=== PATIENT | female | born 1970 | race Caucasian/White ===

== ENCOUNTER 2018-10-16 22:19 | Emergency (ER) | payer OTHER ==
[~2018-10-16] VITALS: Ht 170.2 cm; Wt 68.0 kg
[~2018-10-16 22:19] MED LIST: NO MEDICATIONS
[2018-10-16 23:28] VITALS: BP 136/88
[2018-10-16 23:57] LABS: BASOPHILS # (AUTO) 0.1 /CMM (0.0-0.2); BASOPHILS % (AUTO) 0.9 % (0.0-2.0); EOSINOPHILS % (AUTO) 1.5 % (0.0-6.0); HEMATOCRIT 35 % (33-45); HEMOGLOBIN 11.5 g/dL (11.5-14.8); LYMPHOCYTES # (AUTO) 2.7 /CMM (0.8-4.8); LYMPHOCYTES % (AUTO) 21.3 % (20.0-44.0); MEAN CORPUSCULAR HGB CONC 33 g/dl (31.0-36.0); MEAN CORPUSCULAR VOLUME 75 fL (82-100); MONOCYTES # (AUTO) 1.1 /CMM (0.1-1.30); MONOCYTES % (AUTO) 8.4 % (2.0-12.0); NEUTROPHILS # (AUTO) 8.6 /CMM (1.8-8.9); NEUTROPHILS % (AUTO) 67.9 % (43.0-81.0); PLATELET COUNT (AUTO) 346 /CMM (150-450); RED BLOOD CELL COUNT(AUTO) 4.61 MIL/uL (4.0-5.2); WHITE BLOOD COUNT (AUTO) 12.7 K/uL (4.3-11.0)
[2018-10-17 00:01] LABS: BILIRUBIN,URINE NEGATIVE (NEGATIVE); BLOOD, URINE NEGATIVE Ery/uL (NEGATIVE); COLOR,URINE YELLOW (YELLOW); KETONES,URINE NEGATIVE (NEGATIVE); LEUKOCYTE ESTERASE ,URINE 2+ (NEGATIVE); NITRITE, URINE NEGATIVE (NEGATIVE); PROTEIN,URINE NEGATIVE (NEGATIVE); UGLUCOSE NEGATIVE (NEGATIVE); UROBILINOGEN,URINE 0.2 EU/dL (0.2)
[2018-10-17 00:06] LABS: APPEARANCE,URINE HAZY (CLEAR)
[2018-10-17 00:11] LABS: CALCIUM, SERUM 8.6 mg/dL (8.5-10.1); CARBON DIOXIDE 29 mmol/L (21-32); CHLORIDE 95 mmol/L (98-107); CREATININE 0.7 mg/dL (0.6-1.3); GLUCOSE 97 mg/dL (74-106); POTASSIUM 3.6 mmol/L (3.5-5.1); SODIUM SERUM 131 mmol/L (136-145); UREA NITROGEN, BLOOD 12 mg/dL (7-18)
[2018-10-17 00:17] LABS: ALANINE AMINOTRANSFERASE 20 U/L (12-78); ALBUMIN 3.3 g/dL (3.4-5.0); ALKALINE PHOSPHATASE 94 U/L (46-116); ASPARTATE AMINOTRANSFERASE 16 U/L (15-37); BILIRUBIN,TOTAL 0.2 mg/dL (0.2-1.0); SALICYLATE 3.8 mg/dL (2.8-20.0)
[2018-10-17 00:19] LABS: BACTERIA,URINE Few /HPF (None Seen); RBC,URINE 0-2 /HPF (0-2); SQUAMOUS EPITHELIAL CELL,UR Few /HPF (None Seen); WBC,URINE 0-2 /HPF (0-3)
[2018-10-17 00:20] LABS: ACETAMINOPHEN 0 ug/ml (10-30); ALCOHOL, BLOOD < 3 mg/dL (0-0)
--- NOTE | 2018-10-17 00:43 | NUR ---
CALLED PSYCH EVAL, EN ROUTE
--- NOTE | 2018-10-17 02:25 | NUR ---
PT ACCEPTED TO [facility] BY DR DEAN. # FOR REPORT [phone]
--- NOTE | 2018-10-17 02:28 | NUR ---
CALLED ROBERTO CARLOS FOR BLS TRANSPORT TO [facility]. ETA 1 HOUR FROM NOW TRIP #: [id number]
--- NOTE | 2018-10-17 03:10 | NUR ---
REPORT GIVEN TO [facility] FOR CONTINUATION OF CARE.
--- NOTE | 2018-10-17 03:35 | NUR ---
ROBERTO CARLOS AT BEDSIDE FOR TRANSPORT TO [facility].
== END 2018-10-17 04:17 ==
LOC: ER 22:27
DX: R45.851 Suicidal ideations (principal); I10 Essential (primary) hypertension; K21.9 Gastro-esophageal reflux disease without esophagitis; F41.9 Anxiety disorder, unspecified
CPT/HCPCS: 36415; 80048; 80076; 80305; 80307; 80329; 81001; 85025; 87086; 99285; G0480; 81000-TC

== ENCOUNTER 2021-03-30 18:00 | Inpatient (IN) | payer OTHER ==
[~2021-03-30] VITALS: Ht 167.6 cm; Wt 93.9 kg
[2021-03-30] MEDS ORDERED: IV NS 0.9% 1,000 ML BAG IV ONE (18:30)
--- NOTE | 2021-03-30 18:41 | NUR ---
FRIEDA RASMUSSEN From [facility] "CG noticed that gait was unsteady today unknown LKWT " states "Its the devil messing w/me", Hx of Psych " BS-84. On room air, breathing evenly and unlabored. connected to the monitor and pulse ox. Kept comfortable, will continue to monitor accordingly.
[2021-03-30 19:15] LABS: BASOPHILS # (AUTO) 0.1 K/uL (0.0-0.2); BASOPHILS % (AUTO) 0.7 % (0.0-2.0); HEMATOCRIT 37 % (33-45); HEMOGLOBIN 11.9 g/dL (11.5-14.8); LYMPHOCYTES # (AUTO) 0.3 K/uL (0.8-4.8); LYMPHOCYTES % (AUTO) 2.3 % (20.0-44.0); MEAN CORPUSCULAR HGB CONC 32 g/dl (31.0-36.0); MEAN CORPUSCULAR VOLUME 80 fL (82-100); MONOCYTES # (AUTO) 1.1 K/uL (0.1-1.30); NEUTROPHILS # (AUTO) 13.5 K/uL (1.8-8.9); PLATELET COUNT (AUTO) 338 K/uL (150-450); RED BLOOD CELL COUNT(AUTO) 4.57 MIL/uL (4.0-5.2)
[2021-03-30 19:24] LABS: CALCIUM, SERUM 7.4 mg/dL (8.5-10.1); CREATININE 0.9 mg/dL (0.6-1.3); POTASSIUM 3.8 mmol/L (3.5-5.1)
--- NOTE | 2021-03-30 19:26 | NUR ---
URINE COLLECTED SENT FOR LAB
--- NOTE | 2021-03-30 19:26 | NUR ---
URINE COLLECTED SENT FOR LAB
[2021-03-30 19:29] LABS: ALBUMIN 2.9 g/dL (3.4-5.0); BILIRUBIN,DIRECT 0.1 mg/dL (0.0-0.2); BILIRUBIN,TOTAL 0.2 mg/dL (0.2-1.0); TOTAL PROTEIN, SERUM 6.8 g/dL (6.4-8.2)
[2021-03-30 19:39] LABS: BILIRUBIN,URINE Negative (NEGATIVE); COLOR,URINE YELLOW (YELLOW); LEUKOCYTE ESTERASE ,URINE Trace (NEGATIVE); NITRITE, URINE Negative (NEGATIVE); PROTEIN,URINE Negative (NEGATIVE); UGLUCOSE Negative (NEGATIVE); UROBILINOGEN,URINE 0.2 EU/dL (0.2)
[2021-03-30 19:48] LABS: BACTERIA,URINE Few /HPF (None Seen); RBC,URINE 0-2 /HPF (0-2); SQUAMOUS EPITHELIAL CELL,UR Few /HPF (None Seen); WBC,URINE 0-2 /HPF (0-3)
[2021-03-30 20:10] LABS: ACETAMINOPHEN < 10 ug/ml (10-30); ALCOHOL, BLOOD < 3 mg/dL (0-0)
--- NOTE | 2021-03-30 20:20 | NUR ---
COVID SWAB DONE SENT FOR LAB
[2021-03-30] MEDS ORDERED: ASPIRIN 81 MG TAB.CHEW PO ONE (20:30)
[2021-03-30] MEDS ORDERED: ASPIRIN 81 MG TAB.CHEW ONE (20:51)
[2021-03-30] MEDS ORDERED: ONDANSETRON HCL/PF 4 MG/2 ML VIAL IVP PRN (23:00)
[2021-03-30] MEDS ORDERED: MAG HYDROX/AL HYDROX/SIMETH 30 ML UDC PO PRN (23:00)
[2021-03-30] MEDS ORDERED: NITROGLYCERIN 0.4 MG/TAB BOTTLE SL PRN (23:00)
[2021-03-30] MEDS ORDERED: MORPHINE SULFATE INJ 2 MG/ML DISP.SYRIN IV PRN (23:00)
[2021-03-30] MEDS ORDERED: Z GUARD REMEDY 2 OZ OINT TP PRN (23:00)
[2021-03-30] MEDS ORDERED: HYDROCODONE/APAP 5/325MG TABLET PO PRN (23:00)
[2021-03-30] MEDS ORDERED: MAGNESIUM HYDROXIDE 30 ML UDC PO PRN (23:00)
--- NOTE | 2021-03-31 00:06 | NUR ---
TELE 110
--- NOTE | 2021-03-31 00:30 | NUR ---
COVID SWAB DONE AND SENT TO LAB
--- NOTE | 2021-03-31 00:48 | NUR ---
report given to kyleigh alcantara
[2021-03-31 01:15] VITALS: BP 102/66
--- NOTE | 2021-03-31 01:15 | NUR ---
STUDENT CAREER DEVELOPMENT SPECIALIST NOTES Admitted a 50 y/0 awake a/o x3 [facility] with dx of Nstemi .v/s stable afebrile Pts on r/a sr on the monitor sating 98% with left hand G# 20 intact and patent .all needs attended to , call light within reach ,ALLERGY TO CATS AND DOG HAIR body check done noted with left knee scab,other villegas skin intact. will continue to monitor pts.
--- NOTE | 2021-03-31 01:22 | NUR ---
transferred pt to tele 110 in stable condition with belongings on pt, transferred per acls protocol
[2021-03-31 04:00] VITALS: BP 91/70
[2021-03-31 06:25] LABS: BASOPHILS # (AUTO) 0.1 K/uL (0.0-0.2); BASOPHILS % (AUTO) 0.4 % (0.0-2.0); EOSINOPHILS % (AUTO) 0.1 % (0.0-6.0); HEMATOCRIT 38 % (33-45); HEMOGLOBIN 12.3 g/dL (11.5-14.8); LYMPHOCYTES # (AUTO) 2.2 K/uL (0.8-4.8); LYMPHOCYTES % (AUTO) 16.6 % (20.0-44.0); MEAN CORPUSCULAR HGB CONC 32 g/dl (31.0-36.0); MEAN CORPUSCULAR VOLUME 80 fL (82-100); MONOCYTES # (AUTO) 1.7 K/uL (0.1-1.30); MONOCYTES % (AUTO) 12.3 % (2.0-12.0); NEUTROPHILS # (AUTO) 9.5 K/uL (1.8-8.9); NEUTROPHILS % (AUTO) 70.6 % (43.0-81.0); PLATELET COUNT (AUTO) 354 K/uL (150-450); RED BLOOD CELL COUNT(AUTO) 4.75 MIL/uL (4.0-5.2); WHITE BLOOD COUNT (AUTO) 13.5 K/uL (4.3-11.0)
[2021-03-31 07:19] LABS: CALCIUM, SERUM 8.4 mg/dL (8.5-10.1); CREATININE 0.7 mg/dL (0.6-1.3); MAGNESIUM 2.3 mg/dL (1.8-2.4); PHOSPHORUS 4.2 mg/dL (2.5-4.9); POTASSIUM 3.9 mmol/L (3.5-5.1)
[2021-03-31 07:39] LABS: THYROID STIMULATING HORMONE 1.519 uIU/mL (0.358-3.74)
[2021-03-31 08:00] VITALS: BP 116/55
[2021-03-31] MEDS: PANTOPRAZOLE 40 MG TABLET.DR PO SCH (08:03)
[2021-03-31] MEDS: ENOXAPARIN SODIUM 40 MG/0.4 ML DISP.SYRIN SQ SCH (08:03)
[2021-03-31] MEDS: ASPIRIN 81 MG TAB.CHEW PO SCH (08:04)
[2021-03-31] MEDS ORDERED: OMEP20CA15 PO (09:07)
[2021-03-31] MEDS ORDERED: VALB80CA PO (09:07)
[2021-03-31] MEDS ORDERED: DIVA500T54 PO (09:07)
[2021-03-31] MEDS ORDERED: ERGO500093 PO (09:07)
[2021-03-31] MEDS ORDERED: BENZ1TAB7 PO (09:07)
[2021-03-31] MEDS ORDERED: TOLT4CAP PO (09:07)
[2021-03-31] MEDS ORDERED: GABA-532 PO (09:07)
[2021-03-31] MEDS ORDERED: HALO5TAB8 PO (09:07)
[2021-03-31] MEDS ORDERED: ATOR10TA PO (09:07)
[2021-03-31] MEDS: HALOPERIDOL 5 MG TABLET PO SCH ×2 (11:48→20:35)
[2021-03-31] MEDS: BENZTROPINE MESYLATE (1 MG) 1 MG TABLET PO SCH ×2 (11:48→20:35)
[2021-03-31 12:00] VITALS: BP 120/68
--- NOTE | 2021-03-31 15:15 | NUR ---
RN NOTES CONSENT OBTAIN FOR CT ANGIOGRAM OF THE HEART WITH 3D IMAGES. Toribio FERRO 18 G IV ACCESS INSERTED BY BOTTOM SAW OPERATOR. AWAITING MAINTENANCE MAN. Addendum: 03/31/21 at 1712 by RYDER ABREU RN CT ANGRIOGRAM CANCELED PER PT TACHYCARDIC.
[2021-03-31] MEDS: ACETAMINOPHEN 325 MG TABLET PO PRN (15:38)
[2021-03-31] MEDS ORDERED: IOHEXOL-350 100 ML VIAL IV ONE (15:51)
[2021-03-31] MEDS ORDERED: IV NS 0.9% 250 ML IV ONE (15:52)
[2021-03-31 16:00] VITALS: BP 141/86
[2021-03-31] MEDS ORDERED: METOPROLOL TARTRATE INJ 5 MG/5 ML AMPUL IVP PRN (16:00)
[2021-03-31] MEDS ORDERED: NITROGLYCERIN 0.4 MG/TAB BOTTLE SL PRN (16:00)
--- NOTE | 2021-03-31 16:01 | NUR ---
telephone order clerk note called to dr delacruz notified that hr st 113-126 ,patient is going to have ct angio ok , ordered to to cancel procedure for today ,rt ac hl omar 20 inserted with good blood return
--- NOTE | 2021-03-31 18:44 | NUR ---
RN NOTES PT RESTING WITH BED FLAT IN LOWEST LOCKED POSITION. NO S/SX OF PAIN OR RESPIRATORY DISTRESS. PT HAS A R AC 18 G SALINE LOCK AND L FA 20 G PERIPHERAL IV. ALL NEEDS ATTENDED AT THIS TIME.
--- NOTE | 2021-03-31 19:38 | NUR ---
RN NOTE PT RECEIVED IN BED. PT IS ON 2L OF O2 SHOWING NO S/S OF RESP DISTRESS. PT IS A/OX3. PT ON TELE MONITOR SHOWING NSR-ST. PT IS ABLE TO AMBULATE WITH ASSISTANCE. LEFT KNEE SCAB NOTED. IV ACCESS NOTED, LINES FLUSHED, PATENT, AND INTACT WITH NO INFILTRATION. ALL SAFETY MEASURES IMPLEMENTED. CALL LIGHT WITHIN REACH. BED ALARM ON. BED LOCKED AND IN LOWEST POSITION. WILL CONTINUE TO MONITOR AND ASSESS FOR ANY CHANGES.
[2021-03-31 20:00] VITALS: BP 111/69
[2021-03-31] MEDS ORDERED: LORAZEPAM INJ 2 MG/ML VIAL IV PRN (22:00)
[2021-03-31] MEDS: TEMAZEPAM 15 MG CAPSULE PO PRN (23:52)
[2021-04-01] VITALS: BP 109/67
--- NOTE | 2021-04-01 00:23 | NUR ---
RN NOTE PT HEART RATE GOES UP TO MID 140s. DR. BESS MADE AWARE. NO NEW ORDERS AT THIS TIME. WILL CONTINUE TO MONITOR.
--- NOTE | 2021-04-01 01:36 | NUR ---
RN NOTE PT HEART RATE NOW 110-115. WILL CONTINUE TO MONITOR AND ASSESS FOR ANY CHANGES.
[2021-04-01 04:00] VITALS: BP 104/58
[2021-04-01 06:30] LABS: BASOPHILS % (AUTO) 0.1 % (0.0-2.0); HEMATOCRIT 37 % (33-45); HEMOGLOBIN 11.9 g/dL (11.5-14.8); LYMPHOCYTES # (AUTO) 1.4 K/uL (0.8-4.8); LYMPHOCYTES % (AUTO) 6.2 % (20.0-44.0); MEAN CORPUSCULAR HGB CONC 33 g/dl (31.0-36.0); MEAN CORPUSCULAR VOLUME 80 fL (82-100); MONOCYTES # (AUTO) 2.3 K/uL (0.1-1.30); MONOCYTES % (AUTO) 10.4 % (2.0-12.0); NEUTROPHILS # (AUTO) 18.2 K/uL (1.8-8.9); NEUTROPHILS % (AUTO) 83.3 % (43.0-81.0); PLATELET COUNT (AUTO) 302 K/uL (150-450); RED BLOOD CELL COUNT(AUTO) 4.58 MIL/uL (4.0-5.2); WHITE BLOOD COUNT (AUTO) 21.8 K/uL (4.3-11.0)
[2021-04-01 06:35] LABS: CALCIUM, SERUM 8.7 mg/dL (8.5-10.1); CREATININE 0.8 mg/dL (0.6-1.3); MAGNESIUM 2.1 mg/dL (1.8-2.4); PHOSPHORUS 3.9 mg/dL (2.5-4.9); POTASSIUM 3.2 mmol/L (3.5-5.1)
--- NOTE | 2021-04-01 06:36 | NUR ---
RN NOTE NO CHANGES IN PT CONDITION DURING SHIFT. PT IS ON 2L OF O2 SHOWING NO S/S OF RESP DISTRESS. PT IS A/OX3. PT ON TELE MONITOR SHOWING NSR-ST. PT HR NOW IN MID 80s-110s. IV LINES FLUSHED, PATENT, AND INTACT WITH NO INFILTRATION. ALL DUE MEDS GIVEN ORDERED. PT KEPT CLEAN AND COMFORTABLE. SAFETY MEASURES IMPLEMENTED. CALL LIGHT WITHIN REACH. BED ALARM ON. BED LOCKED AND IN LOWEST POSITION. WILL ENDORSE TO MORNING SHIFT RN FOR JOYCE.
--- NOTE | 2021-04-01 07:30 | NUR ---
MS RN NOTE PT RECEIVED IN BED. AO X 3, PT IS ON 2L O2 NASAL CANULA, NO RESP DISTRESS. ABLE TO EXPRESS NEEDS, IV ACCESS RT HAND G 22 FLUSHES WELL SITE CLEAR. DENIES PAIN AT THIS TIME. AMBULATE WITH ASSISTANCE. LEFT KNEE SCAB NOTED. CARDIAC DIET. ALL SAFETY MEASURES IMPLEMENTED. CALL LIGHT WITHIN REACH. BED ALARM ON. BED LOCKED AND IN LOWEST POSITION. WILL CONTINUE TO MONITOR AND ASSESS FOR ANY CHANGES. PATIENT FOR CTCA PER DR. SAINI TODAY.
[2021-04-01 08:00] VITALS: BP 106/59
[2021-04-01] MEDS: PANTOPRAZOLE 40 MG TABLET.DR PO SCH (08:40)
[2021-04-01] MEDS: BENZTROPINE MESYLATE (1 MG) 1 MG TABLET PO SCH ×2 (08:40→20:13)
[2021-04-01] MEDS: HALOPERIDOL 5 MG TABLET PO SCH ×2 (08:40→20:13)
[2021-04-01] MEDS: ASPIRIN 81 MG TAB.CHEW PO SCH (08:40)
[2021-04-01] MEDS: ENOXAPARIN SODIUM 40 MG/0.4 ML DISP.SYRIN SQ SCH (08:42)
--- NOTE | 2021-04-01 09:30 | NUR ---
RN NOTES DUE MEDS GIVEN NEW IV ACCESS TO LEFT AC G 18. GOOD BLOOD RETURN.
[2021-04-01] MEDS: METOPROLOL TARTRATE 25 MG TABLET PO SCH ×2 (09:48→20:14)
[2021-04-01] MEDS: POTASSIUM CHLORIDE 20 MEQ TAB.PRT.SR PO SCH ×2 (09:49→10:58)
--- NOTE | 2021-04-01 10:15 | NUR ---
RN NOTES DR. SAINI CANCELLED CTCA.
[2021-04-01 12:00] VITALS: BP 98/48
[2021-04-01 16:00] VITALS: BP 103/56
[2021-04-01 18:47] LABS: BILIRUBIN,URINE NEGATIVE (NEGATIVE); COLOR,URINE YELLOW (YELLOW); LEUKOCYTE ESTERASE ,URINE MODERATE (NEGATIVE); NITRITE, URINE NEGATIVE (NEGATIVE); PROTEIN,URINE TRACE mg/dl (NEGATIVE); UGLUCOSE NEGATIVE (NEGATIVE); UROBILINOGEN,URINE 0.2 EU/dL (0.2)
[2021-04-01 18:56] LABS: WBC,URINE 81-100 /HPF (0-3)
[2021-04-01 18:57] LABS: BACTERIA,URINE 4+ /HPF (None Seen); SQUAMOUS EPITHELIAL CELL,UR 0-2 /HPF (None Seen)
[2021-04-01 20:00] VITALS: BP 98/49
[2021-04-01] MEDS: ACETAMINOPHEN 325 MG TABLET PO PRN (20:13)
--- NOTE | 2021-04-01 20:20 | NUR ---
RN NOTE- NON ADMIN LOPRESSOR HOLD LOPRESSOR FOR BP OF 98/49, HR 63.
[2021-04-02 04:00] VITALS: BP 125/66
--- NOTE | 2021-04-02 07:02 | NUR ---
RN CLOSING NOTES NO SIGNIFICANT CHANGE IN PT CONDITION THROUGHOUT SHIFT. PT REMAINS IN BED. ON 3L OF O2, BREATHING EVEN AND UNLABORED. NO DISTRESS NOTED. PT DENIES SOB. ALL NEEDS ATTENDED. PT DENIES PAIN. STILL REMAINS WITH IVF RUNNING ORDERED. SAFETY MEASURES IN PLACE. WILL ENDORSE TO DAY SHIFT NURSE FOR CONTINUATION OF CARE. WILL CONT TO MONITOR UNTIL END OF SHIFT. Addendum: 04/02/21 at 0703 by LATOYA DOZIER RN NO IVF RUNNING*
[2021-04-02 07:07] LABS: BASOPHILS % (AUTO) 0.5 % (0.0-2.0); HEMATOCRIT 35 % (33-45); HEMOGLOBIN 11.4 g/dL (11.5-14.8); LYMPHOCYTES % (AUTO) 9.4 % (20.0-44.0); MEAN CORPUSCULAR HGB CONC 33 g/dl (31.0-36.0); MEAN CORPUSCULAR VOLUME 80 fL (82-100); MONOCYTES % (AUTO) 11.4 % (2.0-12.0); NEUTROPHILS % (AUTO) 78.7 % (43.0-81.0); PLATELET COUNT (AUTO) 271 K/uL (150-450); RED BLOOD CELL COUNT(AUTO) 4.38 MIL/uL (4.0-5.2); WHITE BLOOD COUNT (AUTO) 13.9 K/uL (4.3-11.0)
[2021-04-02 07:08] LABS: BASOPHILS # (AUTO) 0.1 K/uL (0.0-0.2); LYMPHOCYTES # (AUTO) 1.3 K/uL (0.8-4.8); MONOCYTES # (AUTO) 1.6 K/uL (0.1-1.30); NEUTROPHILS # (AUTO) 10.9 K/uL (1.8-8.9)
[2021-04-02 07:13] LABS: CALCIUM, SERUM 8.3 mg/dL (8.5-10.1); CREATININE 0.9 mg/dL (0.6-1.3); MAGNESIUM 1.9 mg/dL (1.8-2.4)
--- NOTE | 2021-04-02 07:20 | NUR ---
MS RN OPENING NOTE PT RECEIVED IN BED. A/O X 2. PT IS ON 3L O2 NASAL CANULA SATURATING AT 96%, WITH NO RESP DISTRESS. ABLE TO EXPRESS NEEDS, IV ACCESS RT HAND G 20, PATENT AND INTACT. PATIENT DENIES PAIN AT THIS TIME. AMBULATE WITH ASSISTANCE. ALL SAFETY MEASURES ENSURED WITH BED AT LOWEST AND LOCKED POSITION. SIDERAILS RAISED X 2. CALL LIGHT AND TABLE WITHIN REACH AT ALL TIMES. WILL CONTINUE TO MONITOR PATIENT.
[2021-04-02] MEDS: ENOXAPARIN SODIUM 40 MG/0.4 ML DISP.SYRIN SQ SCH (08:32)
[2021-04-02] MEDS: BENZTROPINE MESYLATE (1 MG) 1 MG TABLET PO SCH ×2 (08:35→20:31)
[2021-04-02] MEDS: ASPIRIN 81 MG TAB.CHEW PO SCH (08:36)
[2021-04-02] MEDS: METOPROLOL TARTRATE 25 MG TABLET PO SCH ×2 (08:36→20:31)
[2021-04-02] MEDS: PANTOPRAZOLE 40 MG TABLET.DR PO SCH (08:36)
[2021-04-02] MEDS: HALOPERIDOL 5 MG TABLET PO SCH ×2 (08:37→20:31)
[2021-04-02] MEDS: ACETAMINOPHEN 325 MG TABLET PO PRN ×2 (09:25→18:51)
[2021-04-02] MEDS ORDERED: NITROGLYCERIN 0.4 MG/TAB BOTTLE ONE (11:31)
[2021-04-02] MEDS ORDERED: CT SWABBABLE VALVE TRANS SET 1 EA INFUS.SET MC ONE (11:31)
[2021-04-02] MEDS ORDERED: IV NS 0.9% 250 ML IV ONE (11:31)
[2021-04-02] MEDS ORDERED: METOPROLOL TARTRATE INJ 5 MG/5 ML AMPUL ONE (11:31)
[2021-04-02] MEDS ORDERED: IOHEXOL-350 100 ML VIAL IV ONE ×2 (11:31→12:05)
[2021-04-02 12:00] VITALS: BP 118/56
[2021-04-02] MEDS ORDERED: NITROGLYCERIN 0.4 MG/TAB BOTTLE SL ONE (12:00)
[2021-04-02] MEDS ORDERED: METOPROLOL TARTRATE INJ 5 MG/5 ML AMPUL IVP PRN (12:00)
--- NOTE | 2021-04-02 12:15 | NUR ---
pt in here for CTA heart; consented to procedure; recieved netoprolol 5 mg IVPx1 and NTG 0.4 mg SL, pts IV on R ac infiltrated at the start of contrast injection; another peripheral IV g 18 on L ac started by Israel Harrington, CTA completed; BRIGITTE Reid given report; informed also on infiltration on R arm IV and recommended warm packs on previous IV site
[2021-04-02] MEDS: CEFTRIAXONE 2 G in IV D5W 100 ML IV SCH (12:32)
--- NOTE | 2021-04-02 19:25 | NUR ---
MS RN CLOSING NOTE PATIENT IN BED. A/O X 2. PT IS ON 3L O2 NASAL CANULA SATURATING AT 96%, WITH NO RESP DISTRESS. ABLE TO EXPRESS NEEDS, IV ACCESS RT HAND G 20, PATENT AND INTACT. PATIENT DENIES PAIN AT THIS TIME. AMBULATE WITH ASSISTANCE. ALL SAFETY MEASURES ENSURED WITH BED AT LOWEST AND LOCKED POSITION. SIDERAILS RAISED X 2. CALL LIGHT AND TABLE WITHIN REACH AT ALL TIMES. WILL ENDORSE PATIENT FOR CONTINUITY OF CARE.
--- NOTE | 2021-04-02 19:30 | NUR ---
RN NOTE RECEIVED PATIENT IN BED, AXO2, ABLE TO MAKE NEEDS KNOWN. BREATHING EVEN AND UNLABORED. PATIENT CURRENTLY ON 3L NASAL CANNULA. TOLERATING WELL. NO SOB NOTED. SKIN IS WARM AND DRY TO TOUCH. ABDOMEN SOFT/NONTENDER. NOTED WITH IV ACCESS ON RIGHT HAND 20G. PATENT. BED IN LOCKED POSITION, CALL LIGHT WITHIN REACH.
[2021-04-02 20:00] VITALS: BP 97/52
[2021-04-03] MEDS: ACETAMINOPHEN 325 MG TABLET PO PRN (00:45)
--- NOTE | 2021-04-03 00:46 | NUR ---
RN NOTE PATIENT NOTED SHIVERING. PATIENT TEMPERATURE 100.3. ADMINISTERED TYLENOL 650 MG PER ORDER. WILL CONTINUE TO MONITOR.
[2021-04-03] MEDS: TEMAZEPAM 15 MG CAPSULE PO PRN (01:13)
--- NOTE | 2021-04-03 01:17 | NUR ---
RN NOTE PATIENT VERBALIZES INABILITY TO SLEEP AT THIS TIME. ADMINISTERED TEMAZEPAM 15 MG PRN FOR INSOMNIA. ASSISTED WITH REPOSITIONING, OFFERED EXTRA BLANKETS, DIMMED LIGHTS. WILL CONTINUE TO MONITOR. CALL LIGHT WITHIN REACH.
[2021-04-03 04:00] VITALS: BP 104/66
--- NOTE | 2021-04-03 07:25 | NUR ---
RN NOTE NO SIGNIFICANT CHANGES DURING SHIFT. PATIENT CURRENTLY SLEEPING, EASILY AROUSABLE. SKIN WARM AND DRY. AFEBRILE AT THIS TIME. KEPT CLEAN AND DRY AT ALL TIMES. BED IN LOCKED POSITION. CALL LIGHT WITHIN REACH. ENDORSED TO NEXT SHIFT ACCORDINGLY.
--- NOTE | 2021-04-03 07:30 | NUR ---
MS RN OPENING NOTE RECEIVED PT IN BED WITH EYES CLOSED, EASILY AROUSED. A/O X2. PT IS ON 3LPM O2 VIA NC SATURATING AT 95%. NO SOB OR S/S OF RESPIRATORY DISTRESS NOTED. PT HAS NO SIGNS OF FACIAL GRIMACING AT THIS TIME. IV ACCESS IN LAC #18, INTACT AND PATENT. SAFETY PRECAUTIONS MAINTAINED. BED IN LOWEST LOCKED POSITION, HOB ELEVATED, SIDE RAILS UP X3, BED ALARM ON. CALL LIGHT AND TABLE WITHIN REACH. WILL CONTINUE WITH PLAN OF CARE.
[2021-04-03] MEDS: PANTOPRAZOLE 40 MG TABLET.DR PO SCH (07:36)
[2021-04-03] MEDS: ASPIRIN 81 MG TAB.CHEW PO SCH (08:30)
[2021-04-03] MEDS: HALOPERIDOL 5 MG TABLET PO SCH ×2 (08:31→21:23)
[2021-04-03] MEDS: METOPROLOL TARTRATE 25 MG TABLET PO SCH (08:32)
[2021-04-03] MEDS: BENZTROPINE MESYLATE (1 MG) 1 MG TABLET PO SCH ×2 (08:36→21:23)
[2021-04-03] MEDS: ENOXAPARIN SODIUM 40 MG/0.4 ML DISP.SYRIN SQ SCH (08:42)
[2021-04-03] MEDS: ATORVASTATIN 40 MG TABLET PO SCH (09:13)
[2021-04-03] MEDS: CEFTRIAXONE 2 G in IV D5W 100 ML IV SCH (11:47)
[2021-04-03 12:00] VITALS: BP 125/64
[2021-04-03 16:17] LABS: CALCIUM, SERUM 8.3 mg/dL (8.5-10.1); CREATININE 0.8 mg/dL (0.6-1.3); MAGNESIUM 2.1 mg/dL (1.8-2.4); PHOSPHORUS 4.1 mg/dL (2.5-4.9); POTASSIUM 3.4 mmol/L (3.5-5.1)
[2021-04-03 16:19] LABS: HEMOGLOBIN 11.7 g/dL (11.5-14.8); RED BLOOD CELL COUNT(AUTO) 4.47 MIL/uL (4.0-5.2); WHITE BLOOD COUNT (AUTO) 10.3 K/uL (4.3-11.0)
[2021-04-03 16:20] LABS: BASOPHILS % (AUTO) 0.3 % (0.0-2.0); EOSINOPHILS % (AUTO) 0.1 % (0.0-6.0); HEMATOCRIT 35 % (33-45); LYMPHOCYTES # (AUTO) 1.6 K/uL (0.8-4.8); LYMPHOCYTES % (AUTO) 15.7 % (20.0-44.0); MEAN CORPUSCULAR HGB CONC 33 g/dl (31.0-36.0); MEAN CORPUSCULAR VOLUME 79 fL (82-100); MONOCYTES # (AUTO) 1.7 K/uL (0.1-1.30); MONOCYTES % (AUTO) 16.9 % (2.0-12.0); NEUTROPHILS # (AUTO) 6.9 K/uL (1.8-8.9); PLATELET COUNT (AUTO) 287 K/uL (150-450)
[2021-04-03 16:21] LABS: LYMPHOCYTES % (MANUAL) 15 % (16-48); NEUTROPHILS % (MANUAL) 70 (42-76)
[2021-04-03 16:22] LABS: MONOCYTES % (MANUAL) 15 % (0-11.0)
--- NOTE | 2021-04-03 18:17 | NUR ---
MS RN CLOSING NOTE PT IS AWAKE IN BED. A/O X2. PT IS ON 3LPM O2 VIA NC SATURATING AT 96%. NO SOB OR S/S OF RESPIRATORY DISTRESS NOTED. PT HAS NO C/O PAIN OR DISCOMFORT AT THIS TIME. IV ACCESS IN LAC #18, INTACT AND PATENT. ALL NEEDS HAVE BEEN MET. SAFETY PRECAUTIONS MAINTAINED AT ALL TIMES. BED IN LOWEST LOCKED POSITION, HOB ELEVATED, SIDE RAILS UP X3, BED ALARM ON. CALL LIGHT AND TABLE WITHIN REACH. WILL ENDORSE TO ONCOMING NURSE FOR JOYCE.
--- NOTE | 2021-04-03 19:30 | NUR ---
MS RN NOTE RECEIVED PATIENT IN BED, AWAKE, ALERT, AND RESPONSIVE. PATIENT AOX2. ABLE TO MAKE NEEDS KNOWN. BREATHING EVEN AND UNLABORED. PATIENT CURRENTLY ON ROOM AIR AT THIS TIME. NO SOB NOTED. NO COUGH/CONGESTION. SKIN WARM AND DRY TO TOUCH. NOTED WITH IV PULLED OUT. NO BLEEDING AT SITE. IV INTACT. REINSERTED PERIPHERAL IV 24G ON BACK OF RIGHT HAND WITH GOOD BLOOD RETURN. PATIENT AMBULATORY WITH ASSIST TO THE RESTROOM. CALL LIGHT WITHIN REACH.
[2021-04-03 20:00] VITALS: BP 112/76
[2021-04-03] MEDS: METOPROLOL TARTRATE 50 MG TABLET PO SCH (21:23)
[2021-04-04] MEDS: ACETAMINOPHEN 325 MG TABLET PO PRN (03:57)
--- NOTE | 2021-04-04 03:58 | NUR ---
RN NOTE PATIENT NOTED WITH TEMPERATURE OF 100.1 VIA ORAL. RESPIRATION 20. NON-LABORED. SKIN WARM AND DRY TO TOUCH. NO SHIVERING. NO COUGH NOTED. DENIES PAIN AT THIS TIME. PROVIDED PATIENT WITH DAMP TOWEL. WILL CONTINUE TO MONITOR.
[2021-04-04 04:00] VITALS: BP 125/62
[2021-04-04 07:10] LABS: BASOPHILS % (AUTO) 0.3 % (0.0-2.0); EOSINOPHILS % (AUTO) 0.4 % (0.0-6.0); HEMATOCRIT 37 % (33-45); HEMOGLOBIN 12.1 g/dL (11.5-14.8); LYMPHOCYTES # (AUTO) 2.1 K/uL (0.8-4.8); LYMPHOCYTES % (AUTO) 24.7 % (20.0-44.0); MEAN CORPUSCULAR HGB CONC 33 g/dl (31.0-36.0); MEAN CORPUSCULAR VOLUME 79 fL (82-100); MONOCYTES # (AUTO) 1.4 K/uL (0.1-1.30); MONOCYTES % (AUTO) 17.2 % (2.0-12.0); NEUTROPHILS # (AUTO) 4.8 K/uL (1.8-8.9); NEUTROPHILS % (AUTO) 57.4 % (43.0-81.0); PLATELET COUNT (AUTO) 310 K/uL (150-450); RED BLOOD CELL COUNT(AUTO) 4.64 MIL/uL (4.0-5.2); WHITE BLOOD COUNT (AUTO) 8.4 K/uL (4.3-11.0)
--- NOTE | 2021-04-04 07:10 | NUR ---
RN NOTE NO SIGNIFICANT CHANGES DURING SHIFT. PATIENT RESTING AT THIS TIME. NO DISTRESS NOTED. ON LOW FLOW OXYGEN. NO SOB NOTED. KEPT CLEAN AND DRY AT ALL TIMES. BED LOW AND IN LOCKED POSITION. BED ALARM ON. CALL LIGHT WITHIN REACH.
--- NOTE | 2021-04-04 07:25 | NUR ---
RN OPENING NOTE PATIENT IN BED, AWAKE. A&OX2. PATIENT ON 2L O2 NC WITH NO SIGNS OF LABORED BREATHING AT THIS TIME. R HAND PIV ACCESS PATENT. BED LOCKED AND IN LOWEST POSITION, SIDE RAILS UPX3, CALL LIGHT WITHIN REACH. ALL SAFETY MEASURES IMPLEMENTED.
[2021-04-04 07:49] LABS: CALCIUM, SERUM 8.7 mg/dL (8.5-10.1); CREATININE 0.8 mg/dL (0.6-1.3); MAGNESIUM 2.3 mg/dL (1.8-2.4); PHOSPHORUS 4.3 mg/dL (2.5-4.9); POTASSIUM 3.6 mmol/L (3.5-5.1)
[2021-04-04 08:00] VITALS: BP 112/65
[2021-04-04] MEDS: HALOPERIDOL 5 MG TABLET PO SCH (08:51)
[2021-04-04] MEDS: PANTOPRAZOLE 40 MG TABLET.DR PO SCH (08:51)
[2021-04-04] MEDS: ATORVASTATIN 40 MG TABLET PO SCH (08:52)
[2021-04-04] MEDS: ASPIRIN 81 MG TAB.CHEW PO SCH (08:52)
[2021-04-04] MEDS: BENZTROPINE MESYLATE (1 MG) 1 MG TABLET PO SCH (08:52)
[2021-04-04] MEDS: ENOXAPARIN SODIUM 40 MG/0.4 ML DISP.SYRIN SQ SCH (08:53)
[2021-04-04] MEDS: METOPROLOL TARTRATE 50 MG TABLET PO SCH (09:15)
[2021-04-04] MEDS: CEFTRIAXONE 2 G in IV D5W 100 ML IV SCH (10:41)
[2021-04-04 12:00] VITALS: BP 112/65
--- NOTE | 2021-04-04 13:30 | NUR ---
RN NOTE- RECEIVED PT FROM DEEPTI. PT IS ALERT ORIENTED TO PERSON PLACE. CONFUSED, PSYCHOTIC. PT STATES "THERE ARE THINGS COMING OUT OF MY FEET". PT VS- BP- 107/67, HR- N52, T- 98.0, RR- 18, SATS 97% 2L VIA NC. ADMITTED FOR FAILURE TO THRIVE AND NSTEMI. HX- COPD, BIPOLAR, ANXIETY. CURRENTLY CALM , STABLE AND DIRECTABLE. NO DISTRESS. DENIES PAIN. BED LOCKED. CALL LIGHT IN REACH. ASSIST AND MONITOR
[2021-04-04 13:57] VITALS: BP 107/67
[2021-04-04] MEDS ORDERED: METO50TA16 PO (14:21)
[2021-04-04] MEDS ORDERED: ASPI-1169 PO (14:21)
[2021-04-04] MEDS ORDERED: CEPH500C2 PO (14:21)
[2021-04-04 16:00] VITALS: BP 141/58
[2021-04-04 16:05] VITALS: BP 129/81
--- NOTE | 2021-04-04 18:28 | NUR ---
BRIGITTE BOUCHERING Addendum: 04/04/21 at 1830 by RUFUS SCHWARTZ RN RN CLOSING NOTE- PT ALERT ORIENTED TO PERSON PLACE. CONFUSED DELUSIONAL . PO INTAKE FAIR, PT [facility] BE [facility] TO [facility] AT 1700. AWAITING TRANSPORTATION. REPORT PHONED IN TO FACILITY . SIDE RAILS UP, BED LOCKED. ASSIST MONITOR
--- NOTE | 2021-04-04 19:06 | NUR ---
RN DC NOTE- PT DC TO [facility] VIA GURNEY AND AMBULANCE. VS STABLE. REPORT PHONED TO FACILITY. REVIEWED CARE AND ORDERS W AMBULANCE STAFF. ESCORTED OFF UNIT BY STAFF.
== END 2021-04-04 19:00 | DRG 720 ==
LOC: ER 18:07 → TELE1 03-31 00:20 → MEDSG1 04-01 23:14 → MED 04-04 13:19
PROVIDERS: ADMIT Nurse Practitioner Acute Care; ATTEND Nurse Practitioner Acute Care
DX: A41.9 Sepsis, unspecified organism (principal); I21.A1 Myocardial infarction type 2; E87.1 Hypo-osmolality and hyponatremia; F20.0 Paranoid schizophrenia; E66.9 Obesity, unspecified; Z68.37 Body mass index [BMI] 37.0-37.9, adult; J44.9 Chronic obstructive pulmonary disease, unspecified; K21.9 Gastro-esophageal reflux disease without esophagitis; F41.9 Anxiety disorder, unspecified; Z20.822 Contact with and (suspected) exposure to COVID-19; I10 Essential (primary) hypertension; R32 Unspecified urinary incontinence; F31.9 Bipolar disorder, unspecified; G24.01 Drug induced subacute dyskinesia; F29 Unspecified psychosis not due to a substance or known physiological condition; E88.09 Other disorders of plasma-protein metabolism, not elsewhere classified; Z91.19 Patient's noncompliance with other medical treatment and regimen; N12 Tubulo-interstitial nephritis, not specified as acute or chronic; N39.0 Urinary tract infection, site not specified
CPT/HCPCS: 36415; 71045-TC; 75574; 80048-TC; 80061-TC; 80076-TC; 81001; 82962-TC; 83735-TC; 84100-TC; 84443-TC; 84484-TC; 85025-TC; 85730-TC; 87081-TC; 93307-TC; C9803; G0378; G0480; J0696; J1650; J2060; J3490; J7030; J7040; J7050; J7060; Q9967; U0003